=== PATIENT | female | born 1955 | race Caucasian/White ===

== ENCOUNTER → 2024-03-31 | Outpatient (REF) | payer MEDICARE | LOC: MRI 12:49 | PROVIDERS: ATTEND Physician Assistant | DX: M85.88 Other specified disorders of bone density and structure, other site (principal); S22.080S Wedge compression fracture of T11-T12 vertebra, sequela; M47.816 Spondylosis without myelopathy or radiculopathy, lumbar region | CPT/HCPCS: 72148; 77080 ==

== ENCOUNTER 2024-10-16 19:03 | Emergency (ER) | payer MEDICARE ==
[~2024-10-16] VITALS: Ht 152.4 cm; Wt 63.5 kg
[~2024-10-16 19:03] MED LIST: ABILIFY2 MG PO; ACETAMINOPHEN325 M1 PO; AMLODIPINE BESYL5 MG PO; ASPIRIN81 MG PO; CETIRIZINE HCL5 MG PO; CLOPIDOGREL75 MG PO; DIVALPROEX SOD500 MG PO; GABAPENTIN400 MG PO; JARDIANCE10 MG PO; NITROFURANTOIN100 M1 PO; ONDANSETRON ODT4 MG PO; VITAMIN B-1100 M1 PO
[2024-10-16 19:36] VITALS: PULSE 94; RESP 18; TEMP 97.5; O2SAT 96
[2024-10-16] MEDS ORDERED: ULTRAM 50MG50 MG PO (20:19)
== END 2024-10-16 20:29 | disposition home or self-care (01) ==
LOC: ER 19:37
DX: S62.615A Displaced fracture of proximal phalanx of left ring finger, initial encounter for closed fracture (principal); M79.661 Pain in right lower leg; W01.0XXA Fall on same level from slipping, tripping and stumbling without subsequent striking against object, initial encounter; Y93.01 Activity, walking, marching and hiking; Y92.89 Other specified places as the place of occurrence of the external cause; I10 Essential (primary) hypertension; E11.9 Type 2 diabetes mellitus without complications; E78.5 Hyperlipidemia, unspecified; Z86.73 Personal history of transient ischemic attack (TIA), and cerebral infarction without residual deficits
CPT/HCPCS: 99284

== ENCOUNTER 2024-10-25 14:34 | Inpatient (IN) | payer MEDICARE ==
[~2024-10-25] VITALS: Ht 152.4 cm; Wt 63.5 kg
[~2024-10-25 14:34] MED LIST changes: +ULTRAM 50MG50 MG PO
[2024-10-25 15:30] VITALS: PULSE 73; RESP 16; TEMP 98.3
[2024-10-25 16:04] LABS: BASOPHILS # (AUTO) 0.1 (0.0-0.1); BASOPHILS % 0.5 % (0.0-1.0); EOSINOPHILS # (AUTO) 0.4 (0.0-0.4); EOSINOPHILS % 2.4 % (0.0-6.0); HEMATOCRIT 38.6 % (34.2-44.1); HEMOGLOBIN 12.8 g/dL (12.0-16.0); LYMPHOCYTES # (AUTO) 2.7 (1.0-3.2); LYMPHOCYTES % 17.9 % (18.0-39.1); MEAN CORPUSCULAR HEMOGLOBIN 31.1 pg (28-32); MEAN CORPUSCULAR HGB CONC 33.2 g/dL (31-35); MEAN CORPUSCULAR VOLUME 93.7 fL (81-99); MONOCYTES # (AUTO) 2.1 (0.2-0.8); MONOCYTES % 13.4 % (4.4-11.3); NEUTROPHILS # (AUTO) 9.4 (2.1-6.9); NEUTROPHILS % 61.8 % (38.7-80.0); PLATELET COUNT 387 x10e3/uL (140-360); RED BLOOD COUNT 4.12 x10e6/uL (3.6-5.1); RED CELL DISTRIBUTION WIDTH 12.5 % (11.7-14.4); WHITE BLOOD COUNT 15.25 x10e3/uL (4.8-10.8)
[2024-10-25 16:30] LABS: ALBUMIN 3.5 g/dL (3.5-5.0); ALBUMIN/GLOBULIN RATIO 0.9 (0.8-2.0); ANION GAP 16.9 mmol/L (8-16); BILIRUBIN,TOTAL 0.4 mg/dL (0.2-1.2); CALCIUM 9.7 mg/dL (8.4-10.2); CREATININE, SERUM 1.85 mg/dL (0.57-1.11); POTASSIUM 3.9 mmol/L (3.5-5.1); TOTAL PROTEIN 7.2 g/dL (6.5-8.1)
[2024-10-25] MEDS ORDERED: IOPAMIDOL 370 MG/ML 100 ML INFUS..BTL INJ ONE (16:47)
[2024-10-25] MEDS: Morphine 4mg INJECTION 4 MG/ML INJ IV STA (17:00)
[2024-10-25] MEDS: ONDANSETRON HCL INJ 2MG/ML 2ML 2 MG/ML VIAL IV STA (17:00)
[2024-10-25] MEDS ORDERED: Morphine 4mg INJECTION 4 MG/ML INJ IV PRN (18:45)
[2024-10-25] MEDS ORDERED: ONDANSETRON HCL INJ 2MG/ML 2ML 2 MG/ML VIAL IV PRN (18:45)
[2024-10-25] MEDS: SODIUM CHLORIDE 0.9% 1000ML 1,000 ML IV SCH (19:28)
[2024-10-25 20:52] LABS: TROPONIN I 0.003 ng/mL (0-0.300)
[2024-10-25 21:00] VITALS: BP 115/63; PULSE 64; RESP 11; TEMP 98.2; TEMP 98.8; O2SAT 100; O2SAT 95
[2024-10-25 21:55] LABS: EOSINOPHILS % (MANUAL) 2 % (0-7); LYMPHOCYTES % (MANUAL) 17 % (19-48); MONOCYTES % (MANUAL) 12 % (3.4-9.0); NEUTROPHILS % (MANUAL) 69 % (40-74)
[2024-10-25 21:56] LABS: PLATELET ESTIMATE ADEQUATE; PLATELET MORPHOLOGY COMMENT NORMAL; RBC MORPHOLOGY COMMENT NORMAL
[2024-10-26 04:00] VITALS: BP 122/46; PULSE 64; RESP 16; TEMP 98.1; O2SAT 99
[2024-10-26 06:11] LABS: BASOPHILS # (AUTO) 0.1 (0.0-0.1); BASOPHILS % 0.5 % (0.0-1.0); EOSINOPHILS # (AUTO) 0.5 (0.0-0.4); EOSINOPHILS % 5.8 % (0.0-6.0); HEMATOCRIT 36.2 % (34.2-44.1); HEMOGLOBIN 11.6 g/dL (12.0-16.0); LYMPHOCYTES # (AUTO) 2.3 (1.0-3.2); LYMPHOCYTES % 24.6 % (18.0-39.1); MEAN CORPUSCULAR HEMOGLOBIN 30.5 pg (28-32); MEAN CORPUSCULAR VOLUME 95.3 fL (81-99); MONOCYTES # (AUTO) 1.4 (0.2-0.8); MONOCYTES % 14.6 % (4.4-11.3); NEUTROPHILS # (AUTO) 4.8 (2.1-6.9); NEUTROPHILS % 51.1 % (38.7-80.0); PLATELET COUNT 295 x10e3/uL (140-360); RED CELL DISTRIBUTION WIDTH 12.6 % (11.7-14.4); WHITE BLOOD COUNT 9.31 x10e3/uL (4.8-10.8)
[2024-10-26 06:54] LABS: ALBUMIN 2.9 g/dL (3.5-5.0); ALBUMIN/GLOBULIN RATIO 1.1 (0.8-2.0); ANION GAP 13.8 mmol/L (8-16); BILIRUBIN,TOTAL 0.3 mg/dL (0.2-1.2); CALCIUM 8.4 mg/dL (8.4-10.2); CREATININE, SERUM 1.71 mg/dL (0.57-1.11); POTASSIUM 3.8 mmol/L (3.5-5.1); TOTAL PROTEIN 5.6 g/dL (6.5-8.1)
[2024-10-26] MEDS ORDERED: ATORVASTATIN CA20 MG (07:13)
[2024-10-26] MEDS ORDERED: NITROFURANTOIN100 MG (07:13)
[2024-10-26 07:25] LABS: TROPONIN I 0.004 ng/mL (0-0.300)
[2024-10-26 08:00] VITALS: BP 122/46; PULSE 64; RESP 16; TEMP 98.1; O2SAT 99
[2024-10-26 10:38] VITALS: BP 118/52; PULSE 69; RESP 18; TEMP 97.9; O2SAT 93
[2024-10-26 17:33] VITALS: BP 119/93; PULSE 63; RESP 18; TEMP 98.3; O2SAT 99
[2024-10-26 20:00] VITALS: BP 142/59; PULSE 71; RESP 17; TEMP 98.1; O2SAT 96
[2024-10-27] VITALS (7 sets, daily range): BP systolic 130–172; BP diastolic 55–97; PULSE 53–68; RESP 16–19; TEMP 98.1–98.9; O2SAT 97–99
[2024-10-27] MEDS ORDERED: DEXTROSE 50% SYRINGE 50 ML IV PRN (04:30)
[2024-10-27 05:36] LABS: BASOPHILS % 0.4 % (0.0-1.0); EOSINOPHILS # (AUTO) 0.4 (0.0-0.4); EOSINOPHILS % 4.4 % (0.0-6.0); HEMATOCRIT 32.6 % (34.2-44.1); HEMOGLOBIN 10.7 g/dL (12.0-16.0); LYMPHOCYTES # (AUTO) 2.2 (1.0-3.2); LYMPHOCYTES % 22.8 % (18.0-39.1); MEAN CORPUSCULAR HEMOGLOBIN 30.7 pg (28-32); MEAN CORPUSCULAR HGB CONC 32.8 g/dL (31-35); MEAN CORPUSCULAR VOLUME 93.4 fL (81-99); MONOCYTES # (AUTO) 1.2 (0.2-0.8); MONOCYTES % 12.2 % (4.4-11.3); NEUTROPHILS # (AUTO) 5.6 (2.1-6.9); PLATELET COUNT 293 x10e3/uL (140-360); RED BLOOD COUNT 3.49 x10e6/uL (3.6-5.1); RED CELL DISTRIBUTION WIDTH 12.3 % (11.7-14.4); WHITE BLOOD COUNT 9.58 x10e3/uL (4.8-10.8)
[2024-10-27] MEDS: TRAMADOL HCL 50 MG TAB PO SCH (05:36)
[2024-10-27 06:15] LABS: TROPONIN I < 0.001 ng/mL (0-0.300)
[2024-10-27 06:25] LABS: CLARITY,URINE CLEAR (CLEAR); COLOR,URINE YELLOW (YELLOW); PH,URINE 6 (5 - 7)
[2024-10-27 06:26] LABS: BILIRUBIN,URINE NEGATIVE (NEGATIVE); GLUCOSE, URINE NEGATIVE (NEGATIVE); KETONES,URINE NEGATIVE (NEGATIVE); LEUKOCYTE ESTERASE ,URINE NEGATIVE (NEGATIVE); NITRITE,URINE NEGATIVE (NEGATIVE); PROTEIN,URINE DIPSTICK NEGATIVE (NEGATIVE); URINE UROBILINOGEN 0.2 mg/dL (0.2 - 1)
[2024-10-27 06:28] LABS: BACTERIA,URINE FEW /HPF; EPITHELIAL CELLS,URINE FEW /LPF; RBC,URINE 0-5 /HPF (0-5); WBC,URINE (MAN) 0-5 /HPF (0-5)
[2024-10-27 06:29] LABS: CALCIUM 8.5 mg/dL (8.4-10.2); CREATINE KINASE 22 IU/L (29-168); CREATININE, SERUM 1.42 mg/dL (0.57-1.11)
[2024-10-27 06:57] LABS: SODIUM,URINE 94 mmol/L
[2024-10-27 06:58] LABS: TOTAL PROTEIN, URINE < 6.8 mg/dL (1-14)
[2024-10-27 07:09] LABS: CREATININE,URINE RANDOM 26.57 mg/dL (47-110)
[2024-10-27] MEDS: INSULIN REGULAR, HUMAN 100 UNIT/1 ML SQ SCH (07:30)
[2024-10-27] MEDS: DEPAKOTE DELAYED-RELEASE TAB 500 MG PO SCH (09:00)
[2024-10-27] MEDS: ASPIRIN 81 MG CHEW TAB PO SCH (10:16)
[2024-10-27] MEDS: CLOPIDOGREL BISULFATE 75 MG TAB PO SCH (10:16)
[2024-10-27] MEDS: ARIPIPRAZOLE 2 MG TABLET PO SCH (10:16)
[2024-10-27] MEDS: THIAMINE HCL 100 MG TAB PO SCH (10:16)
[2024-10-27] MEDS: AMLODIPINE BESYLATE 5 MG TAB PO SCH (10:16)
[2024-10-27] MEDS: LORATADINE 10 MG TAB PO SCH (12:48)
[2024-10-27] MEDS: FAMOTIDINE 20 MG TAB PO SCH (12:48)
[2024-10-27] MEDS ORDERED: FAMOTIDINE 20 MG TAB PO SCH (16:30)
[2024-10-28] VITALS (7 sets, daily range): BP systolic 141–166; BP diastolic 60–80; PULSE 65–103; RESP 16–19; TEMP 98–99; O2SAT 95–99
[2024-10-28 05:49] LABS: BASOPHILS # (AUTO) 0.1 (0.0-0.1); BASOPHILS % 0.6 % (0.0-1.0); EOSINOPHILS # (AUTO) 0.4 (0.0-0.4); EOSINOPHILS % 4.6 % (0.0-6.0); HEMATOCRIT 33.7 % (34.2-44.1); HEMOGLOBIN 11.1 g/dL (12.0-16.0); LYMPHOCYTES # (AUTO) 1.5 (1.0-3.2); LYMPHOCYTES % 16.2 % (18.0-39.1); MEAN CORPUSCULAR HEMOGLOBIN 30.7 pg (28-32); MEAN CORPUSCULAR HGB CONC 32.9 g/dL (31-35); MEAN CORPUSCULAR VOLUME 93.1 fL (81-99); MONOCYTES # (AUTO) 1.2 (0.2-0.8); MONOCYTES % 12.4 % (4.4-11.3); NEUTROPHILS % 64.4 % (38.7-80.0); PLATELET COUNT 309 x10e3/uL (140-360); RED BLOOD COUNT 3.62 x10e6/uL (3.6-5.1); RED CELL DISTRIBUTION WIDTH 12.1 % (11.7-14.4); WHITE BLOOD COUNT 9.38 x10e3/uL (4.8-10.8)
[2024-10-28 06:16] LABS: ANION GAP 11.1 mmol/L (8-16); CALCIUM 8.4 mg/dL (8.4-10.2); CREATININE, SERUM 1.14 mg/dL (0.57-1.11); POTASSIUM 4.1 mmol/L (3.5-5.1)
[2024-10-28 06:48] LABS: FOLATE 6.3 ng/mL (7.0-15.4)
[2024-10-29] VITALS (9 sets, daily range): BP systolic 101–158; BP diastolic 59–74; PULSE 60–68; RESP 17–18; TEMP 97.9–98.7; O2SAT 96–100
[2024-10-29 05:40] LABS: BASOPHILS # (AUTO) 0.1 (0.0-0.1); BASOPHILS % 0.5 % (0.0-1.0); EOSINOPHILS # (AUTO) 0.5 (0.0-0.4); EOSINOPHILS % 4.9 % (0.0-6.0); HEMATOCRIT 33.7 % (34.2-44.1); LYMPHOCYTES % 21.2 % (18.0-39.1); MEAN CORPUSCULAR HEMOGLOBIN 30.4 pg (28-32); MEAN CORPUSCULAR HGB CONC 32.6 g/dL (31-35); MEAN CORPUSCULAR VOLUME 93.1 fL (81-99); MONOCYTES # (AUTO) 1.1 (0.2-0.8); MONOCYTES % 11.3 % (4.4-11.3); NEUTROPHILS # (AUTO) 5.8 (2.1-6.9); NEUTROPHILS % 59.8 % (38.7-80.0); PLATELET COUNT 333 x10e3/uL (140-360); RED BLOOD COUNT 3.62 x10e6/uL (3.6-5.1); RED CELL DISTRIBUTION WIDTH 12.7 % (11.7-14.4); WHITE BLOOD COUNT 9.63 x10e3/uL (4.8-10.8)
[2024-10-29 06:03] LABS: ANION GAP 12.4 mmol/L (8-16); CALCIUM 8.6 mg/dL (8.4-10.2); CREATININE, SERUM 1.39 mg/dL (0.57-1.11); POTASSIUM 4.4 mmol/L (3.5-5.1)
[2024-10-30 03:21] VITALS: BP 148/60; PULSE 65; RESP 18; TEMP 98.4; O2SAT 100
[2024-10-30 05:47] LABS: BASOPHILS # (AUTO) 0.1 (0.0-0.1); BASOPHILS % 0.4 % (0.0-1.0); EOSINOPHILS # (AUTO) 0.4 (0.0-0.4); EOSINOPHILS % 3.2 % (0.0-6.0); HEMATOCRIT 34.2 % (34.2-44.1); LYMPHOCYTES % 17.2 % (18.0-39.1); MEAN CORPUSCULAR HGB CONC 32.2 g/dL (31-35); MEAN CORPUSCULAR VOLUME 93.2 fL (81-99); MONOCYTES # (AUTO) 1.3 (0.2-0.8); MONOCYTES % 11.2 % (4.4-11.3); NEUTROPHILS # (AUTO) 7.6 (2.1-6.9); NEUTROPHILS % 66.8 % (38.7-80.0); PLATELET COUNT 332 x10e3/uL (140-360); RED BLOOD COUNT 3.67 x10e6/uL (3.6-5.1); RED CELL DISTRIBUTION WIDTH 12.4 % (11.7-14.4); WHITE BLOOD COUNT 11.39 x10e3/uL (4.8-10.8)
[2024-10-30 06:36] LABS: ANION GAP 15.4 mmol/L (8-16); CALCIUM 8.9 mg/dL (8.4-10.2); CREATININE, SERUM 1.38 mg/dL (0.57-1.11); POTASSIUM 4.4 mmol/L (3.5-5.1)
[2024-10-30 08:00] VITALS: BP 147/68; PULSE 70; RESP 17; TEMP 98.1; O2SAT 98
[2024-10-30 09:53] VITALS: BP 147/68; PULSE 70; RESP 17; TEMP 98.1; O2SAT 98
[2024-10-30 12:00] VITALS: BP 140/61; PULSE 75; RESP 17; TEMP 98.3; O2SAT 98
[2024-10-30 17:35] VITALS: BP 151/61; PULSE 63; RESP 18; TEMP 98.1; O2SAT 99
[2024-10-30 20:00] VITALS: BP 144/51; PULSE 74; RESP 16; TEMP 97.9; O2SAT 97
[2024-10-31 01:27] LABS: CLARITY,URINE CLEAR (CLEAR); COLOR,URINE YELLOW (YELLOW); GLUCOSE, URINE NEGATIVE (NEGATIVE); KETONES,URINE NEGATIVE (NEGATIVE); LEUKOCYTE ESTERASE ,URINE TRACE (NEGATIVE); NITRITE,URINE NEGATIVE (NEGATIVE); PH,URINE 5.5 (5 - 7); PROTEIN,URINE DIPSTICK NEGATIVE (NEGATIVE); URINE UROBILINOGEN 0.2 mg/dL (0.2 - 1)
[2024-10-31 01:28] LABS: BILIRUBIN,URINE NEGATIVE (NEGATIVE)
[2024-10-31 01:29] LABS: BACTERIA,URINE MANY /HPF; EPITHELIAL CELLS,URINE FEW /LPF; RBC,URINE 0-5 /HPF (0-5)
[2024-10-31 07:30] VITALS: BP 164/64; PULSE 74; RESP 18; TEMP 98.1; O2SAT 100
[2024-10-31 08:09] LABS: BASOPHILS % 0.3 % (0.0-1.0); EOSINOPHILS # (AUTO) 0.3 (0.0-0.4); EOSINOPHILS % 3.3 % (0.0-6.0); HEMATOCRIT 34.3 % (34.2-44.1); HEMOGLOBIN 11.6 g/dL (12.0-16.0); LYMPHOCYTES # (AUTO) 1.7 (1.0-3.2); LYMPHOCYTES % 16.5 % (18.0-39.1); MEAN CORPUSCULAR HEMOGLOBIN 31.2 pg (28-32); MEAN CORPUSCULAR HGB CONC 33.8 g/dL (31-35); MEAN CORPUSCULAR VOLUME 92.2 fL (81-99); MONOCYTES # (AUTO) 1.3 (0.2-0.8); MONOCYTES % 12.1 % (4.4-11.3); NEUTROPHILS # (AUTO) 6.9 (2.1-6.9); NEUTROPHILS % 66.2 % (38.7-80.0); PLATELET COUNT 307 x10e3/uL (140-360); RED BLOOD COUNT 3.72 x10e6/uL (3.6-5.1); RED CELL DISTRIBUTION WIDTH 12.2 % (11.7-14.4); WHITE BLOOD COUNT 10.41 x10e3/uL (4.8-10.8)
[2024-10-31 08:40] LABS: CALCIUM 9.2 mg/dL (8.4-10.2); CREATININE, SERUM 1.27 mg/dL (0.57-1.11)
[2024-10-31 11:38] VITALS: BP 169/67; PULSE 67; RESP 18; TEMP 97.6; O2SAT 99
[2024-10-31 15:31] VITALS: BP 165/71; PULSE 78; RESP 18; TEMP 98; O2SAT 98
[2024-10-31 20:00] VITALS: BP 143/55; PULSE 63; RESP 16; TEMP 98.1; O2SAT 96
[2024-10-31 20:19] VITALS: BP 143/55; PULSE 63; RESP 16; TEMP 98.1; O2SAT 96
[2024-11-01] VITALS (7 sets, daily range): BP systolic 144–168; BP diastolic 58–76; PULSE 60–78; RESP 18; TEMP 97.5–98.3; O2SAT 96–100
[2024-11-02] VITALS (8 sets, daily range): BP systolic 109–151; BP diastolic 44–69; PULSE 56–67; RESP 18; TEMP 97.5–98.6; O2SAT 96–99
[2024-11-02] MEDS: AMLODIPINE BESYLATE 5 MG TAB PO SCH (09:29)
[2024-11-02] MEDS ORDERED: ALBUTEROL/IPRATROPIUM 3 ML NEB NEB PRN (11:30)
[2024-11-03] VITALS (8 sets, daily range): BP systolic 120–169; BP diastolic 57–73; PULSE 71–76; RESP 17–18; TEMP 97.6–98.4; O2SAT 96–100
[2024-11-03 05:34] LABS: BASOPHILS % 0.5 % (0.0-1.0); EOSINOPHILS # (AUTO) 0.2 (0.0-0.4); EOSINOPHILS % 2.5 % (0.0-6.0); HEMATOCRIT 38.9 % (34.2-44.1); HEMOGLOBIN 13.1 g/dL (12.0-16.0); LYMPHOCYTES # (AUTO) 1.4 (1.0-3.2); LYMPHOCYTES % 16.6 % (18.0-39.1); MEAN CORPUSCULAR HEMOGLOBIN 31.1 pg (28-32); MEAN CORPUSCULAR HGB CONC 33.7 g/dL (31-35); MEAN CORPUSCULAR VOLUME 92.4 fL (81-99); MONOCYTES # (AUTO) 0.8 (0.2-0.8); MONOCYTES % 9.8 % (4.4-11.3); NEUTROPHILS # (AUTO) 5.7 (2.1-6.9); NEUTROPHILS % 68.5 % (38.7-80.0); PLATELET COUNT 335 x10e3/uL (140-360); RED BLOOD COUNT 4.21 x10e6/uL (3.6-5.1); RED CELL DISTRIBUTION WIDTH 12.3 % (11.7-14.4); WHITE BLOOD COUNT 8.29 x10e3/uL (4.8-10.8)
[2024-11-03 06:01] LABS: ANION GAP 16.4 mmol/L (8-16); CALCIUM 9.5 mg/dL (8.4-10.2); CREATININE, SERUM 1.25 mg/dL (0.57-1.11); POTASSIUM 4.4 mmol/L (3.5-5.1)
[2024-11-03] MEDS: ACETAMINOPHEN 325 MG TAB PO PRN (15:39)
[2024-11-04] VITALS (7 sets, daily range): BP systolic 127–156; BP diastolic 55–78; PULSE 66–72; RESP 16–20; TEMP 97.3–98.1; O2SAT 96–100
[2024-11-05 00:37] VITALS: BP 158/70; PULSE 65; RESP 16; TEMP 97.9; O2SAT 97
[2024-11-05 04:59] VITALS: BP 135/61; PULSE 69; RESP 16; TEMP 98; O2SAT 98
[2024-11-05 08:00] VITALS: BP 146/75; PULSE 73; RESP 18; TEMP 98.1; O2SAT 98
[2024-11-05] MEDS ORDERED: LORAZEPAM INJ 2 MG/ML VIAL IV PRN (11:00)
[2024-11-05 12:00] VITALS: BP 176/67; PULSE 73; RESP 18; TEMP 97.9; O2SAT 100
[2024-11-05 16:00] VITALS: BP 142/70; PULSE 70; RESP 20; TEMP 98; O2SAT 99
[2024-11-05 20:00] VITALS: BP 133/61; PULSE 71; RESP 16; TEMP 98.8; O2SAT 94
[2024-11-06] VITALS (7 sets, daily range): BP systolic 119–147; BP diastolic 61–82; PULSE 70–84; RESP 16–18; TEMP 97.1–99.1; O2SAT 97–100
[2024-11-06 06:40] LABS: BASOPHILS # (AUTO) 0.1 (0.0-0.1); EOSINOPHILS # (AUTO) 0.2 (0.0-0.4); EOSINOPHILS % 1.8 % (0.0-6.0); HEMATOCRIT 40.4 % (34.2-44.1); HEMOGLOBIN 13.2 g/dL (12.0-16.0); LYMPHOCYTES # (AUTO) 2.2 (1.0-3.2); LYMPHOCYTES % 21.6 % (18.0-39.1); MEAN CORPUSCULAR HEMOGLOBIN 30.3 pg (28-32); MEAN CORPUSCULAR HGB CONC 32.7 g/dL (31-35); MEAN CORPUSCULAR VOLUME 92.7 fL (81-99); MONOCYTES # (AUTO) 0.9 (0.2-0.8); MONOCYTES % 8.7 % (4.4-11.3); NEUTROPHILS # (AUTO) 6.6 (2.1-6.9); NEUTROPHILS % 64.6 % (38.7-80.0); PLATELET COUNT 330 x10e3/uL (140-360); RED BLOOD COUNT 4.36 x10e6/uL (3.6-5.1); RED CELL DISTRIBUTION WIDTH 12.5 % (11.7-14.4); WHITE BLOOD COUNT 10.25 x10e3/uL (4.8-10.8)
[2024-11-06 07:00] LABS: ANION GAP 17.6 mmol/L (8-16); CALCIUM 9.4 mg/dL (8.4-10.2); CREATININE, SERUM 1.19 mg/dL (0.57-1.11); POTASSIUM 3.6 mmol/L (3.5-5.1)
[2024-11-06] MEDS ORDERED: FAMOTIDINE20 MG PO (14:26)
[2024-11-06] MEDS ORDERED: NORVASC5 MG PO (14:26)
== END 2024-11-06 18:48 | disposition home or self-care (01) | DRG 552 ==
LOC: ER 14:39 → ERHOLD 18:59 → MED/SURG2 20:07
PROVIDERS: ADMIT Internal Medicine; ATTEND Internal Medicine
DX: M54.50 Low back pain, unspecified (principal); N39.0 Urinary tract infection, site not specified; N17.9 Acute kidney failure, unspecified; R62.7 Adult failure to thrive; B96.20 Unspecified Escherichia coli [E. coli] as the cause of diseases classified elsewhere; I12.9 Hypertensive chronic kidney disease with stage 1 through stage 4 chronic kidney disease, or unspecified chronic kidney disease; E11.22 Type 2 diabetes mellitus with diabetic chronic kidney disease; N18.30 Chronic kidney disease, stage 3 unspecified; D63.1 Anemia in chronic kidney disease; R29.6 Repeated falls; R26.81 Unsteadiness on feet; R53.81 Other malaise; F01.50 Vascular dementia, unspecified severity, without behavioral disturbance, psychotic disturbance, mood disturbance, and anxiety; Z71.3 Dietary counseling and surveillance; Z68.27 Body mass index [BMI] 27.0-27.9, adult; E78.5 Hyperlipidemia, unspecified; D75.839 Thrombocytosis, unspecified; S62.603A Fracture of unspecified phalanx of left middle finger, initial encounter for closed fracture; X58.XXXA Exposure to other specified factors, initial encounter; Z86.73 Personal history of transient ischemic attack (TIA), and cerebral infarction without residual deficits; Z79.02 Long term (current) use of antithrombotics/antiplatelets; Z79.82 Long term (current) use of aspirin; Z79.899 Other long term (current) drug therapy
CPT/HCPCS: 36415; 70450; 70551; 72132; 76770; 80048; 80053; 80061; 81001; 82550; 82570; 82607; 82746; 82948; 83540; 84156; 84300; 84466; 84484; 85025; 85045; 87086; 87186; 96361; 99252; 99284; J0696; J2060; J2270; J2405; J3411; J7030; Q9967

== ENCOUNTER 2025-04-28 13:49 | Emergency (ER) | payer MEDICARE ==
[~2025-04-28] VITALS: Ht 152.4 cm; Wt 63.5 kg
[~2025-04-28 13:49] MED LIST changes: +ATORVASTATIN CA20 MG; +FAMOTIDINE20 MG PO; +NITROFURANTOIN100 MG; +NORVASC5 MG PO
[2025-04-28] MEDS: SODIUM CHLORIDE 0.9% 1000ML 1,000 ML IV ONE ×2 (14:35→16:56)
[2025-04-28] MEDS: ONDANSETRON HCL INJ 2MG/ML 2ML 2 MG/ML VIAL IV STA ×2 (14:36→19:30)
[2025-04-28 14:51] LABS: BASOPHILS % 0.3 % (0.0-1.0); EOSINOPHILS % 0.6 % (0.0-6.0); LYMPHOCYTES % 20.2 % (18.0-39.1); MONOCYTES % 7.6 % (4.4-11.3); NEUTROPHILS % 70.5 % (38.7-80.0); RED CELL DISTRIBUTION WIDTH 12.4 % (11.7-14.4)
[2025-04-28 15:15] LABS: EST GLOMERULAR FILTRATION RATE 33.0 ML/MIN (>=60)
[2025-04-28 17:26] VITALS: BP 196/76
[2025-04-28] MEDS: HYDRALAZINE HCL 20 MG/ML VIAL IV STA (17:26)
[2025-04-28] MEDS ORDERED: ONDANSETRON ODT4 MG PO (17:59)
[2025-04-28] MEDS ORDERED: ONDANSETRON HCL INJ 2MG/ML 2ML 2 MG/ML VIAL IV PRN (18:00)
[2025-04-28] MEDS ORDERED: SODIUM CHLORIDE 0.9% 1000ML 1,000 ML IV SCH (18:00)
[2025-04-28] MEDS: METOCLOPRAMIDE HCL 10 MG/2ML VIAL IV ONE (18:17)
[2025-04-28] MEDS ORDERED: ONDANSETRON HCL INJ 2MG/ML 2ML 2 MG/ML VIAL ONE (19:18)
[2025-04-28 19:30] VITALS: PULSE 82; RESP 16; TEMP 98.2; O2SAT 100
[2025-04-28 19:33] LABS: LEUKOCYTE ESTERASE ,URINE TRACE (NEGATIVE); PROTEIN,URINE DIPSTICK 2+ (NEGATIVE); URINE UROBILINOGEN 0.2 mg/dL (0.2 - 1)
[2025-04-28 19:46] LABS: EPITHELIAL CELLS,URINE FEW /LPF; WBC,URINE (MAN) 0-5 /HPF (0-5)
== END 2025-04-28 19:45 | disposition home or self-care (01) ==
LOC: ER 14:18
DX: R11.2 Nausea with vomiting, unspecified (principal); N17.9 Acute kidney failure, unspecified; I10 Essential (primary) hypertension; E11.65 Type 2 diabetes mellitus with hyperglycemia; E78.5 Hyperlipidemia, unspecified; Z86.73 Personal history of transient ischemic attack (TIA), and cerebral infarction without residual deficits
CPT/HCPCS: 36415; 74177; 80053; 81001; 83690; 85025; 99284; J0360; J2405; J2765; J7030